=== PATIENT | female | born 1990 | race Caucasian/White ===

== ENCOUNTER 2019-12-16 09:43 | Emergency (ER) | payer BC ==
[2019-12-16] MEDS ORDERED: NA CHLORIDE 0.9% 1,000 ML ONE (10:43)
[2019-12-16] MEDS ORDERED: ONDANSETRON 4 MG/2 ML VIAL ONE (10:43)
[2019-12-16] MEDS ORDERED: FAMOTIDINE 20 MG/2 ML VIAL IV ONE (10:44)
[2019-12-16 10:56] LABS: Urine Blood TRACE (NEG); Urine Glucose NEGATIVE (NEG); Urine Protein 2+ (NEG); Urine pH 7.5 (5.0-7.0)
[2019-12-16 11:00] LABS: Absolute Lymphocytes (CBC) 0.6 K/uL (0.7-4.9); Basophils % 0.1 % (0-1.3); Hematocrit 43.3 % (36.0-45.0); MPV 8.5 fL (7.6-11.3); RBC Red Blood Cell Count 4.83 M/uL (3.86-4.86)
[2019-12-16] MEDS ORDERED: MAGNE/ALUM HYDROXD 30 ML UCUP ONE (11:17)
[2019-12-16] MEDS ORDERED: LIDOCAINE VISCOUS 2% SOLN 15 ML UDC ONE (11:17)
[2019-12-16] MEDS ORDERED: METOCLOPRAMIDE 10 MG/2mL INJ ONE (11:17)
[2019-12-16 11:56] LABS: ALT/SGPT 24 U/L (12-78); AST/SGOT 24 U/L (15-37); Albumin 4.6 g/dL (3.4-5.0); Alkaline Phosphatase 62 U/L (45-117); BUN Blood Urea Nitrogen 9 mg/dL (7-18); Bicarbonate 22 mmol/L (21-32); Bilirubin Direct 0.2 mg/dL (0-0.2); Bilirubin Total 0.8 mg/dL (0.2-1.0); Glucose Level 111 mg/dL (74-106); Lipase 75 U/L (73-393); Potassium 3.6 mmol/L (3.5-5.1); Protein, Total 8.3 g/dL (6.4-8.2); Sodium Level 137 mmol/L (136-145)
[2019-12-16] MEDS ORDERED: LORazepam 2 MG/ML VIAL ONE (12:01)
--- NOTE | 2019-12-16 12:01 | ER ---
Nurse's Notes [facility] Name: Jadyn Goff Age: 29 yrs Sex: Female : 1990 Arrival Date: 12/16/2019 Time: 09:48 Bed 17 Private MD: Diagnosis: Nausea Presentation: 12/15 10:10 Chief complaint: Patient states: N/V/D since last night, mild abd pain, denies fever, em cough or body aches. Coronavirus screen: Client denies travel out of the [place] in the last 14 days. Ebola Screen: Patient negative for fever greater than or equal to 101.5 degrees Fahrenheit, and additional compatible Ebola Virus Disease symptoms Patient denies exposure to infectious person. Patient denies travel to an Ebola-affected area in the 21 days before illness onset. No symptoms or risks identified at this time. Initial Sepsis Screen: Does the patient meet any 2 criteria? No. Patient's initial sepsis screen is negative. Does the patient have a suspected source of infection? No. Patient's initial sepsis screen is negative. Risk Assessment: Do you want to hurt yourself or someone else? Patient reports no desire to harm self or others. Onset of symptoms was December 15, 2019. 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 - Social history:: Smoking status: Patient reports the use of cigarette tobacco products, denies chronic smoking, but will smoke occasionally. Screenin:14 Abuse screen: Denies threats or abuse. Nutritional screening: No deficits noted. em Tuberculosis screening: No symptoms or risk factors identified. Fall Risk None identified. Assessment: 10:00 General: Appears in no apparent distress. comfortable, Behavior is cooperative, em anxious, Denies fever. Pain: Complains of pain in right lower quadrant and left lower quadrant Pain currently is 2 out of 10 on a pain scale. Neuro: Level of Consciousness is awake, alert, obeys commands, Oriented to person, place, time, situation, Appropriate for age. Cardiovascular: Capillary refill < 3 seconds Patient's skin is warm and dry. Respiratory: Airway is patent Respiratory effort is even, unlabored, Respiratory pattern is regular, symmetrical, Denies cough, shortness of breath. GI: Abdomen is flat, Reports diarrhea, nausea, vomiting. : Denies burning with urination. Derm: Skin is intact, is healthy with good turgor, Skin is pink, warm \T\ dry. Musculoskeletal: Capillary refill < 3 seconds, Range of motion: intact in all extremities. 11:06 Reassessment: reports nausea medication is not working, provider notified. em 11:10 Reassessment: pt refused Ativan at this time. em 11:30 Reassessment: Dr. Mcintyre at bedside, pt request ativan after no relief from breathing em in bag. Vital Signs: 10:10 BP 131 / 88; Pulse 64; Resp 18; Pulse Ox 99% on R/A; Weight 54.43 kg; Height 5 ft. 4 em in. (162.56 cm); Pain 2/10; 11:17 Temp 98.1; em 11:30 BP 119 / 86; Pulse 65; Resp 16; Pulse Ox 99% on R/A; em 10:10 Body Mass Index 20.60 (54.43 kg, 162.56 cm) em ED Course: 09:48 Patient arrived in ED. mr 09:55 Cari Mcintyre MD is Attending Physician. ma2 09:57 Luis Antonio Shea, RN is Primary Nurse. em 10:13 Triage completed. em 10:14 Arm band placed on. em 10:14 Patient has correct armband on for positive identification. Bed in low position. Call em light in reach. Pulse ox on. NIBP on. 10:45 Initial lab(s) drawn, by me, sent to lab. Inserted saline lock: 20 gauge in left em antecubital area, using aseptic technique. Blood collected. 12:23 No provider procedures requiring assistance completed. IV discontinued, intact, em bleeding controlled, No redness/swelling at site. Pressure dressing applied. Administered Medications: 10:45 Drug: Zofran (Ondansetron) 4 mg Route: IVP; Site: left antecubital; em 11:08 Follow up: Response: No adverse reaction; No change in condition; Nausea unchanged em 10:45 Drug: Pepcid 20 mg Route: IVP; Site: left antecubital; em 11:08 Follow up: Response: No adverse reaction em 10:45 Drug: NS 0.9% 1000 ml Route: IV; Rate: 1 bolus; Site: left antecubital; em 11:56 Follow up: IV Status: Completed infusion; IV Intake: 1000ml em 11:13 Not Given (Patient Refused): Ativan 1 mg IVP once em 11:13 Drug: Reglan 20 mg {Note: placed in NS bolus .} Route: IVP; Site: left antecubital; em 11:55 Follow up: Response: No adverse reaction; No change in condition; Nausea unchanged em 11:56 Drug: Ativan 1 mg Route: IVP; Site: left antecubital; em 12:22 Follow up: Response: No adverse reaction; Marked relief of symptoms em 12:22 Not Given (Patient Refused): GI Cocktail without - (Maalox Suspension 30 ml, em Lidocaine Liquid 2 % 15 ml) PO once Intake: 11:56 IV: 1000ml; Total: 1000ml. em Outcome: 12:01 Discharge ordered by . tomi 12:23 Discharged to home ambulatory, with family. em 12:23 Condition: stable 12:23 Discharge instructions given to patient, Instructed on discharge instructions, follow up and referral plans. medication usage, Demonstrated understanding of instructions, follow-up care, medications, Prescriptions given X 3. 12:31 Patient left the ED. em Signatures: Carie Mo Edgar, RN RN em Alzahri, Mohammad, MD MD ma2
--- NOTE | 2019-12-16 12:02 | EDPHYS ---
Physician Documentation [facility] Name: Jadyn Goff Age: 29 yrs Sex: Female : 1990 Arrival Date: 12/16/2019 Time: 09:48 Bed 17 Private MD: ED Physician Cari Mcintyre HPI: 12/15 11:04 This 29 yrs old Female presents to ER via Ambulatory with complaints of ma2 Nausea/Vomiting/Diarrhea. 11:04 The patient presents to the emergency department with nausea, vomiting. Onset: The ma2 symptoms/episode began/occurred gradually, 3 day(s) ago. Associated signs and symptoms: Pertinent negatives: constipation, diarrhea, fever, GI bleeding, hematuria. Severity of symptoms: At their worst the symptoms were mild. The patient has experienced similar episodes in the past. 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 - Social history:: Smoking status: Patient reports the use of cigarette tobacco products, denies chronic smoking, but will smoke occasionally. ROS: 11:04 Constitutional: Negative for fever, chills, and weight loss, Abdomen/GI: Negative for ma2 abdominal pain, nausea, diarrhea, and constipation. 11:04 All other systems are negative. Exam: 11:04 Constitutional: This is a well developed, well nourished patient who is awake, alert, ma2 and in no acute distress. Head/Face: Normocephalic, atraumatic. Chest/axilla: Normal chest wall appearance and motion. Nontender with no deformity. No lesions are appreciated. Cardiovascular: Regular rate and rhythm with a normal S1 and S2. No gallops, murmurs, or rubs. Normal PMI, no JVD. No pulse deficits. Respiratory: Lungs have equal breath sounds bilaterally, clear to auscultation and percussion. No rales, rhonchi or wheezes noted. No increased work of breathing, no retractions or nasal flaring. Abdomen/GI: Soft, non-tender, with normal bowel sounds. No distension or tympany. No guarding or rebound. No evidence of tenderness throughout. MS/ Extremity: Pulses equal, no cyanosis. Neurovascular intact. Full, normal range of motion. Neuro: Awake and alert, GCS 15, oriented to person, place, time, and situation. Cranial nerves II-XII grossly intact. Motor strength 5/5 in all extremities. Sensory grossly intact. Cerebellar exam normal. Normal gait. Vital Signs: 10:10 BP 131 / 88; Pulse 64; Resp 18; Pulse Ox 99% on R/A; Weight 54.43 kg; Height 5 ft. 4 em in. (162.56 cm); Pain 2/10; 11:17 Temp 98.1; em 11:30 BP 119 / 86; Pulse 65; Resp 16; Pulse Ox 99% on R/A; em 10:10 Body Mass Index 20.60 (54.43 kg, 162.56 cm) em MDM: 09:55 Patient medically screened. [facility] 11:04 Differential diagnosis: gastritis, pancreatitis, appendicitis, diverticulitis, viral ma2 gastroenteritis. 12:00 Data reviewed: vital signs, nurses notes. Counseling: I had a detailed discussion with ma the patient and/or guardian regarding: the historical points, exam findings, and any diagnostic results supporting the discharge/admit diagnosis, the presence of at least one elevated blood pressure reading (>120/80) during this emergency department visit, the need for outpatient follow up. Response to treatment: the patient's symptoms have markedly improved after treatment. 12/15 10:18 Order name: Urine Dipstick--Ancillary (enter results); Complete Time: 11:32 12/15 10:18 Order name: Urine --Ancillary (enter results); Complete Time: 11:32 12/15 10:28 Order name: Basic Metabolic Panel; Complete Time: 12:00 [facility] 12/15 10:28 Order name: CBC with Diff [facility] 12/15 10:28 Order name: Hepatic Function; Complete Time: 12:00 [facility] 12/15 10:28 Order name: Lipase; Complete Time: 12:00 [facility] 12/15 12:06 Order name: Manual Differential EDMS 12/15 10:28 Order name: IV Saline Lock; Complete Time: 10:55 [facility] 12/15 10:28 Order name: Labs collected and sent; Complete Time: 10:55 ma2 Administered Medications: 10:45 Drug: Zofran (Ondansetron) 4 mg Route: IVP; Site: left antecubital; em 11:08 Follow up: Response: No adverse reaction; No change in condition; Nausea unchanged em 10:45 Drug: Pepcid 20 mg Route: IVP; Site: left antecubital; em 11:08 Follow up: Response: No adverse reaction em 10:45 Drug: NS 0.9% 1000 ml Route: IV; Rate: 1 bolus; Site: left antecubital; em 11:56 Follow up: IV Status: Completed infusion; IV Intake: 1000ml em 11:13 Not Given (Patient Refused): Ativan 1 mg IVP once em 11:13 Drug: Reglan 20 mg {Note: placed in NS bolus .} Route: IVP; Site: left antecubital; em 11:55 Follow up: Response: No adverse reaction; No change in condition; Nausea unchanged em 11:56 Drug: Ativan 1 mg Route: IVP; Site: left antecubital; em 12:22 Follow up: Response: No adverse reaction; Marked relief of symptoms em 12:22 Not Given (Patient Refused): GI Cocktail without - (Maalox Suspension 30 ml, em Lidocaine Liquid 2 % 15 ml) PO once Disposition: 12/16/19 12:01 Discharged to Home. Impression: Nausea. - Condition is Stable. - Prescriptions for Pepcid 20 mg Oral Tablet - take 1 tablet by ORAL route every 12 hours for 10 days; 20 tablet. Zofran 4 mg Oral Tablet - take 1 tablet by ORAL route every 12 hours As needed; 20 tablet. Reglan 10 mg Oral Tablet - take 1 tablet by ORAL route every 6 hours . take 30 minutes before meals and at bedtime; 100 tablet. - Medication Reconciliation Form, Thank You Letter, Antibiotic Education, Prescription Opioid Use form. - Follow up: Private Physician; When: Tomorrow; Reason: Continuance of care. Signatures: Dispatcher [employer] Luis Antonio Louis, RN RN Cari Edwards MD MD ma2 Corrections: (The following items were deleted from the chart) 12:31 12:01 12/16/2019 12:01 Discharged to Home. Impression: Nausea. Condition is Stable. em Prescriptions for Pepcid 20 mg Oral Tablet - take 1 tablet by ORAL route every 12 hours for 10 days; 20 tablet, Zofran 4 mg Oral Tablet - take 1 tablet by ORAL route every 12 hours As needed; 20 tablet. and Forms are Medication Reconciliation Form, Thank You Letter, Antibiotic Education, Prescription Opioid Use. Follow up: Private Physician; When: Tomorrow; Reason: Continuance of care. ma2
[2019-12-16 12:06] LABS: Platelet Estimate ADEQ
[2019-12-16 12:07] LABS: Blood Morphology Comment NOT SEEN (NOT SEEN)
[2019-12-16 12:40] VITALS: O2SAT 99
[2019-12-16 12:41] VITALS: TEMP 98.1
[2019-12-16 12:42] VITALS: BP 119/86
== END 2019-12-16 12:31 | disposition home or self-care (01) ==
LOC: ER 09:43
DX: R11.0 Nausea (principal); F17.210 Nicotine dependence, cigarettes, uncomplicated
CPT/HCPCS: 85025; 80048; 36415; 81025; 80076; 81003; 83690; J2765; J7030; J2405; 96361; 96374; 96375; 99284